=== PATIENT | female | born 1990 | race Hispanic/Latino ===

== ENCOUNTER 2025-03-30 05:20 | Observation (INO) | payer BC ==
[~2025-03-30] VITALS: Ht 162.6 cm; Wt 103.9 kg
[2025-03-30] VITALS (8 sets, daily range): BP systolic 132–148; BP diastolic 91–107; PULSE 71–106; RESP 16–20; TEMP 97.3–98.6; O2SAT 94–99
[~2025-03-30 05:20] MED LIST: BIOTIN 800 MCG1 EACH PO; MULTI-VITAMIN1 EACH PO
[2025-03-30] MEDS ORDERED: FENTANYL CITRATE/PF 100MCG/2 ML INJ ONE (06:37)
[2025-03-30] MEDS ORDERED: ACETAMINOPHEN 1000 MG/100 ML 100 ML IV ONE (06:37)
[2025-03-30] MEDS ORDERED: PROPOFOL IV EMULSION 10 MG/ML 20 ML VIAL ONE (06:37)
[2025-03-30] MEDS ORDERED: SUGAMMADEX SODIUM 200 MG/2 ML VIAL IV ONE (06:37)
[2025-03-30] MEDS ORDERED: SEVOFLURANE INHAL SOLN 250 ML PEN BTL ONE (06:37)
[2025-03-30] MEDS ORDERED: ROCURONIUM BROMIDE 1 ML IV ONE (06:38)
[2025-03-30] MEDS ORDERED: ONDANSETRON HCL INJ 2MG/ML 2ML 2 MG/ML VIAL ONE (06:38)
[2025-03-30] MEDS ORDERED: DEXAMETHASONE SOD PHOS INJ 4 MG/ML SDV ONE (06:38)
[2025-03-30] MEDS ORDERED: LIDOCAINE HCL 2% LOCAL INJ 5 ML SDV VIAL INJ ONE (06:38)
[2025-03-30] MEDS ORDERED: SUCCINYLCHOLINE CHLORIDE 20 MG/ML 10ML VIAL ONE (06:39)
[2025-03-30] MEDS: SCOPOLAMINE 1 MG PATCH TOP SCH (07:00)
[2025-03-30] MEDS: LACTATED RINGER'S 1,000 ML ONE (07:05)
[2025-03-30] MEDS: CEFAZOLIN SODIUM 2 GM ONE (07:06)
[2025-03-30] MEDS ORDERED: PHENYLEPHRINE HCL 1% 10 MG/ML VIAL ONE (07:36)
[2025-03-30] MEDS ORDERED: SODIUM CHLORIDE 0.9% INJ 10 ML VIAL ONE (07:36)
[2025-03-30] MEDS ORDERED: EPHEDRINE SULFATE INJ 50 MG/ML VIAL ONE (07:47)
[2025-03-30] MEDS: HYDROMORPHONE 1MG/1ML INJ ONE (09:21)
[2025-03-30] MEDS: FENTANYL CITRATE/PF 100MCG/2 ML INJ ONE (11:16)
[2025-03-30] MEDS: Morphine 2mg Syringe 2 MG/ML SYR IV PRN (12:46)
[2025-03-30] MEDS: ONDANSETRON HCL INJ 2MG/ML 2ML 2 MG/ML VIAL IV PRN (12:46)
[2025-03-30] MEDS: SCOPOLAMINE 1 MG PATCH ONE (13:14)
[2025-03-30] MEDS: LACTATED RINGER'S 1,000 ML IV SCH (13:16)
[2025-03-30] MEDS: HYDROCODONE/APAP 7.5MG-325MG 1 EA TAB PO PRN (16:03)
[2025-03-30] MEDS: ENOXAPARIN SOD INJ 40 MG/0.4 ML SYR SC SCH (20:00)
[2025-03-31] VITALS: BP 159/97; PULSE 87; RESP 18; TEMP 99.1; O2SAT 94
[2025-03-31 04:00] VITALS: BP 148/106; PULSE 72; RESP 18; TEMP 97.6; O2SAT 95
[2025-03-31 05:27] LABS: BASOPHILS % 0.1 % (0.0-1.0); EOSINOPHILS % 0.1 % (0.0-6.0); LYMPHOCYTES % 10.6 % (18.0-39.1); MONOCYTES % 7.6 % (4.4-11.3); NEUTROPHILS % 81.0 % (38.7-80.0); RED CELL DISTRIBUTION WIDTH 14.2 % (11.7-14.4)
[2025-03-31 06:05] LABS: EST GLOMERULAR FILTRATION RATE 117.0 ML/MIN (>=60); PHOSPHORUS 2.4 MG/DL (2.3-4.7)
[2025-03-31] MEDS: HYDRALAZINE HCL 20 MG/ML VIAL IV STA (06:29)
[2025-03-31] MEDS: ONDANSETRON HCL INJ 2MG/ML 2ML 2 MG/ML VIAL IV ONE (06:29)
[2025-03-31 06:56] VITALS: PULSE 92; RESP 18; O2SAT 100
[2025-03-31 08:00] VITALS: BP 142/96; PULSE 85; RESP 18; TEMP 98.4; O2SAT 97
[2025-03-31 08:25] VITALS: BP 161/111; PULSE 92; RESP 18; TEMP 97.6; O2SAT 100
[2025-03-31 12:08] VITALS: BP 143/90; PULSE 78; RESP 18; TEMP 98.8; O2SAT 99
== END 2025-03-31 11:37 | disposition home or self-care (01) ==
LOC: OR 05:20 → PACU V 06:25 → MED/SURG 12:28
PROVIDERS: ADMIT Internal Medicine; ATTEND Internal Medicine
DX: E66.01 Morbid (severe) obesity due to excess calories (principal); Z68.41 Body mass index [BMI] 40.0-44.9, adult; K44.9 Diaphragmatic hernia without obstruction or gangrene; I10 Essential (primary) hypertension; E78.5 Hyperlipidemia, unspecified; D64.9 Anemia, unspecified; G89.28 Other chronic postprocedural pain; K76.0 Fatty (change of) liver, not elsewhere classified
CPT/HCPCS: 36415; 43281; 43775; 43999; 47379; 80053; 81025; 83735; 84100; 85025; 88307; 88313; 94799 ×2; C1894; G0378 ×2; J0131; J0330; J0360; J1100; J1171; J1650 ×2; J2003; J2270 ×2; J2371; J2405 ×2; J2704; J3010; J7121